=== PATIENT | female | born 1970 | race Caucasian/White ===

== ENCOUNTER 2020-09-24 10:53 | Day surgery (SDC) | payer BC ==
[~2020-09-24] VITALS: Ht 160 cm; Wt 68.3 kg
[2020-09-24] MEDS ORDERED: NS 1,000 ML IV ONE (11:45)
[2020-09-24] MEDS ORDERED: KETOROLAC 30 MG/ML 1ML VIAL IV ONE (11:45)
[2020-09-24] MEDS ORDERED: ONDANSETRON 4MG/2ML VIAL IV ONE (11:45)
--- NOTE | 2020-09-24 11:59 | REP ---
INDICATION: right flank pain/ hx kidney stones COMPARISON: None TECHNIQUE: Axial noncontrast images from the lung bases to the pubic symphysis with coronal and sagittal reformations. This CT examination was performed using the following dose reduction techniques: Automated exposure control, adjustment of mA and/or kv according to the patient's size, and use of iterative reconstruction technique. FINDINGS: Right kidney demonstrates mild hydroureteronephrosis with perinephric stranding secondary to an 8 mm calculus at the ureterovesical junction (series 201; image 115). Nonobstructing right renal calculi measure up to 3 mm and nonobstructing left renal calculi measure up to 8 mm. Liver, spleen, pancreas, gallbladder, and bilateral adrenal glands are normal. The enteric system is without obstruction or acute inflammatory process. Pelvis demonstrates collapsed bladder with right UVJ stone as above and evidence for prior hysterectomy. No ascites. No free air. No adenopathy. Abdominal aorta without aneurysm. Musculoskeletal structures are intact. Lung bases are clear.. IMPRESSION: Acute right-sided obstructive uropathy within 8 mm calculus at the ureterovesical junction. Bilateral nonobstructing intrarenal calculi noted. <Electronically signed by Matteo Ornelas > 09/24/20 [id number]
[2020-09-24 12:09] LABS: BASO % 0.7 % (0.0-1.0); EOS # 0.1 10^3/uL (0.0-0.5); EOS % 1.3 % (0.0-3.0); HEMOGLOBIN 14.5 g/dl (12.0-15.5); LYMPH # 1.3 10^3/uL (1.5-5.0); LYMPH % 21.2 % (24.0-44.0); MEAN CORPUSCULAR HEMOGLOBIN 29.8 pg (27.0-33.0); MEAN CORPUSCULAR HGB CONC 32.2 g/dl (32.0-36.5); MEAN CORPUSCULAR VOLUME 92.6 fl (80.0-96.0); MONO # 0.5 10^3/uL (0.0-0.8); MONO % 7.8 % (0.0-5.0); NEUTROPHILS # 4.1 10^3/uL (1.5-8.5); NEUTROPHILS % 68.3 % (36.0-66.0); PLATELET COUNT, AUTOMATED 206 10^3/uL (150-450); RED BLOOD COUNT 4.86 10^6/uL (4.00-5.40)
[2020-09-24] MEDS ORDERED: ACET1TAB16 PO (13:00)
[2020-09-24] MEDS ORDERED: THERTAB52 PO (13:00)
[2020-09-24 13:47] LABS: RSV AMPLIFICATION NEGATIVE (NEGATIVE)
[2020-09-24] MEDS ORDERED: ceFAZolin SOD 2 GM in IV 1 EA IV ONE (15:45)
--- OUTSIDE RECORDS SUMMARY | 2020-09-24 17:36 | CCD ---
Author Author [facility] Organization [facility] Address Unknown Phone Unavailable Care Team Providers Care Business Process Consultant Name Role Phone Javad Jolly MANUFACTURING WEAVER Unavailable Javad Jolly MANUFACTURING WEAVER Unavailable Javad Jolly MANUFACTURING WEAVER Unavailable Javad Jolly MANUFACTURING WEAVER Unavailable Javad Jolly MANUFACTURING WEAVER Unavailable Javad Jolly MANUFACTURING WEAVER Unavailable Javad Jolly MANUFACTURING WEAVER Unavailable Javad Jolly MANUFACTURING WEAVER Unavailable Richard CAMPOS MD Unavailable Unavailable Richard CAMPOS MD Unavailable Unavailable Richard CAMPOS MD Unavailable Unavailable Richard CAMPOS MD Unavailable Unavailable Richard CAMPOS MD Unavailable Unavailable Richard CAMPOS MD Unavailable Unavailable Richard CAMPOS MD Unavailable Unavailable Richard CAMPOS MD Unavailable Unavailable Richard CAMPOS MD Unavailable Unavailable Richard CAMPOS MD Unavailable Unavailable Richard CAMPOS MD Unavailable Unavailable Richard CAMPOS MD Unavailable Unavailable Richard CAMPOS MD Unavailable Unavailable Richard CAMPOS MD Unavailable Unavailable Richard CAMPOS MD Unavailable Unavailable Richard CAMPOS MD Unavailable Unavailable Richard CAMPOS MD Unavailable Unavailable HAASBEEK, F KATELYNN MD Unavailable Unavailable HAASBEEK, F KATELYNN MD Unavailable Unavailable HAASBEEK, F KATELYNN MD Unavailable Unavailable HAASBEEK, F KATELYNN MD Unavailable Unavailable HAASBEEK, F KATELYNN MD Unavailable Unavailable HAASBEEK, F KATELYNN MD Unavailable Unavailable HAASBEEK, F KATELYNN MD Unavailable Unavailable HAASBEEK, F KATELYNN MD Unavailable Unavailable HAASBEEK, F KATELYNN MD Unavailable Unavailable Bartlett, E Olimpia PA Unavailable [phone] Bartlett, E Olimpia PA Unavailable [phone] Bartlett, E Olimpia PA Unavailable [phone] Bartlett, E Olimpia PA Unavailable [phone] Bartlett, E Olimpia PA Unavailable [phone] Re-disclosure Warning The records that you are about to access may contain information from federally-assisted alcohol or drug abuse programs. If such information is present, then the following federally mandated warning applies: This information has been disclosed to you from records protected by federal confidentiality rules (42 CFR part 2). The federal rules prohibit you from making any further disclosure of this information unless further disclosure is expressly permitted by the written consent of the person to whom it pertains or as otherwise permitted by 42 CFR part 2. A general authorization for the release of medical or other information is NOT sufficient for this purpose. The Federal rules restrict any use of the information to criminally investigate or prosecute any alcohol or drug abuse patient.The records that you are about to access may contain highly sensitive health information, the redisclosure of which is protected by Article 27-F of the [facility] Public Health law. If you continue you may have access to information: Regarding HIV / AIDS; Provided by facilities licensed or operated by the [facility] Office of Mental Health; or Provided by the [facility] Office for People With Developmental Disabilities. If such information is present, then the following [facility] mandated warning applies: This information has been disclosed to you from confidential records which are protected by state law. State law prohibits you from making any further disclosure of this information without the specific written consent of the person to whom it pertains, or as otherwise permitted by law. Any unauthorized further disclosure in violation of state law may result in a fine or prison sentence or both. A general authorization for the release of medical or other information is NOT sufficient authorization for further disc losure. Allergies and Adverse Reactions Type Description Substance Reaction Status Data Source(s ) Drug allergy Drug allergy Sulfa (Sulfonamide Antibiotics) Anaphylactic Shock Other [facility] Encounters Encounter Providers Location Date Indications Data Source(s ) Preadmit Attender: Olimpia SOW CPSCAORT-PRSCAOT 12:00:00 AM EST S/P R VOLAR GANGLION CYST EXCISION [facility] S/P R VOLAR GANGLION CYST EXCISION Outpatient Attender: Olimpia SOW CPSCAORT-CPSCAORT 1 10/03/2019 10:28:00 AM EST - 08/03/2020 10:29:00 AM EST [facility] Patient discharged. Outpatient Attender: KATELYNN CAMPOS MD CPSCAORT-SDCLOC 11:08:00 AM EST - 07/20/2020 02:01:00 PM EST [facility]ST Outpatient Attender: KATELYNN CAMPOS MD CPSCAORT-LABPNP 10:15:00 AM EST PRE-OP [facility] PRE-OP Outpatient Attender: KATELYNN CAMPOS MD ED-LABPNP 07/15/2020 08:00:00 AM EST PREOP [facility] PREOP Outpatient Attender: Olimpia SOW CPSCAORT-CPSCAORT 1 08:45:00 AM EDT - 07/04/2020 08:46:00 AM EDT [facility] Patient discharged. Outpatient Attender: Narda QUISPE CPSCAORT-CPSCAORT 0 10/27/2019 10:31:00 AM EST - 10/27/2019 10:32:00 AM EST [facility] Patient discharged. Medications Medication Brand Name Start Date Product Form Dose Route Admi nistrative Instructions Pharmacy Instructions Status Indications Reaction Description Data Source(s) 300-30 mg 07/20/2020 12:00:00 AM EST tablet 15 TAKE ONE TABLET BY MOUTH EVERY 4 HOURS NEEDED FOR PAIN MAXIMUM DAILY DOSE = 6 TAKE ONE TABLET BY MOUTH EVERY 4 HOURS NEEDED FOR PAIN MAXIMUM DAILY DOSE = 6 SOLD: 07/20/2020 [facility] 875 mg 09/19/2019 12:00:00 AM EST tablet 20 TAKE 1 TABLET BY MOUTH TWICE DAILY TAKE 1 TABLET BY MOUTH TWICE DAILY SOLD: 09/19/2019 [facility] Insurance Providers Payer name Policy type / Coverage type Policy ID Covered alliance party ID Covered alliance party's relationship to sparks Policy [place] Plan Information BC CAP[employer]UE CROSS 361 [id number] SP [id number] BC [employer]OSS 361 [id number] [id number] 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 [id number] 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 EXC [id number] 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 [id number] [place] [id number] Full deanna e employed [id number] [employer] [place] [id number] SPOUSE [id number] EXCELLUS BLUE CROSS [id number] HU [id number] EXCELLUS BLUE CROSS [id number] HU [id number] EXCELLUS BLUE CROSS [id number] HU [id number] EXCELLUS BLUE CROSS [id number] HU [id number] BLUE CROSS -O/P [id number] 01 [id number] BLUE CROSS - CLINIC [id number] 01 [id number] BLUE CROSS -O/P [id number] 01 [id number] BCBS HMO [place] O [id number] U [id number] Problems, Conditions, and Diagnoses Code Display Name Description Problem Type Effective Dates Data Source(s) M67.431 Ganglion, right wrist GANGLION, RIGHT WRIST Diagnosis 07/20/2020 11:08:00 AM [facility] Surgeries/Procedures Procedure Description Date Indications Data Source(s) EXCISION GANGLION WRIST DORSAL/VOLAR RECURRENT 020 12:00:00 AM [facility] LEVEL III SURG PATHOLOGY GROSS&MICROSCOPIC EXAM TISSUE EXAM BY PATHOLOGIST 07/20/2020 12:00:00 AM [facility] Injection, propofol, 10 mg 07/20/2020 12:00:00 AM [facility] Injection, fentanyl citrate, 0.1 mg 07/20/2020 12:00:0 0 AM [facility] Excision of Right Lower Arm and Wrist Tendon, Open [place] EXCISION OF RIGHT LOWER ARM AND WRIST TENDON, OPEN APPROACH 07/20/2020 12:00:00 AM [facility] outpatient clinic visit for assessment and ma kerri of a patient Hospital Outpatient Clinic Visit 07/04/2020 12:00:[address] [facility] RADEX WRIST COMPLETE MINIMUM 3 VIEWS X-RAY EXAM OF WRIST 12:00:00 AM [facility] Results ID Date Data Source [id number] 08/30/2020 04:06:00 PM [facility] Name Value Range Interpretation Code Description Data Blanca rce(s) Supporting Document(s) ID Date Data Source [id number] 07/24/2020 02:59:00 PM [facility] COVID-19 Patient Ethnicity Not or LatinoCOVID-19 Patient Race WhiteCOVID-19 Specimen Source Nasopharyngeal Name Value Range Interpretation Code Description Data Blanca rce(s) Supporting Document(s) SARS-CoV-2 Specimen Source Normal (applies to n on-numeric results) [facility] SARS-CoV-2 RNA Normal (applies to non-numeric r esults) [facility] Patient Race Normal (applies to non-numeric result s) [facility] Not or LatinoSee scanned report ID Date Data Source [id number] 10/27/2019 01:40:00 PM [facility] Name: RASHEEDA KILGORE : 1970 Age/S ex: 49F Ordering Provider: JOSE ENRIQUE Olvera Med Rec #: [id number] Reg Status: REG POV Room #: Date of Service: 10/27/19 Report Number: [id number] cc:JOSE ENRIQUE Olvera Send Report To: [id number] XRP/XR Wrist Rt Min. 3 Views Reason for exam: GANGLION CYST FINDINGS: Normal alignment and position of the bones. No signs of any osseous lesions identified. No other significant findings. IMPRESSION: No abnormalities identified. Fluoroscopy time in seconds: Number of Exposures: Time Portable Image Performed: Contrast Agent in ml: Method of Administration: REPORT SIGNATURE ON FILE Reported By: Florian Gonzalez MD <Electronically signed by Nathaniel Gonzalez MD> 10/27/19 1515 Dictation Date/Time: 10/27/19 1120 Transcribed Date/Time: 10/27/19 1340 Production Supv: RAI Name Value Range Interpretation Code Description Data Blanca rce(s) Supporting Document(s) Procedure Vital Signs ID Date Data Source [id number] 08/31/2020 07:27:00 AM EST [facility] Name Value Range Interpretation Code Description Data Source(s) Weight Measurement Method [address] [facility] Weight [address] [facility] Temperature 97.3 97.3 [facility] Respiratory Effort [address] [facility] Respiratory Rate 16 16 [facility] Pulse Rate [address] [facility] Height [address] [facility] Blood Pressure 114/76 114/76 [facility]
[2020-09-24] MEDS ORDERED: ONDANSETRON 4MG/2ML VIAL As Ordered ONE (17:44)
[2020-09-24] MEDS ORDERED: LIDOCAINE 2% 100MG/5ML SDV (FOR ANES.) As Ordered ONE (17:44)
[2020-09-24] MEDS ORDERED: dexameTHASONE 4 MG/ML 1ML VIAL (J1100 PER 1MG) As Ordered ONE (17:44)
[2020-09-24] MEDS ORDERED: MIDAZOLAM INJ 2MG/2ML VIAL (J2250 PER 1MG) As Ordered ONE (17:44)
[2020-09-24] MEDS ORDERED: fentaNYL 250 MCG/5 ML INJECTION (J3010) As Ordered ONE (17:44)
[2020-09-24] MEDS ORDERED: propofoL 200 MG/20 ML VIAL As Ordered ONE (17:44)
[2020-09-24] MEDS ORDERED: CONRAY-60 60% 50ML VIAL (Q9961) As Ordered ONE (17:49)
[2020-09-24] MEDS ORDERED: ePHEDrine SULFATE 25 MG/5 ML(5MG/ML) SYRINGE As Ordered ONE (18:17)
--- NOTE | 2020-09-24 18:32 | REP ---
INDICATION: PYELOGRAM. COMPARISON: None. TECHNIQUE: Two fluoroscopic images from pyelogram study. FINDINGS: Two images demonstrate moderate hydronephrosis with ureteral stent placement. Total fluoroscopic time 23 seconds IMPRESSION: Status post right ureteral stent placement. <Electronically signed by Matteo Ornelas > 09/24/20 0404
--- NOTE | 2020-09-24 18:33 | SMCUROLCON ---
Urology Consultation General Date of Consultation 09/24/20 Reason For Consultation This patient is seen for Low Back Pain. History of Present Illness The patient is a 50-year-old female with a past medical history for renal calculi all of which have been on the right side. She presents to the emergency room today with a one-week history of low-grade back pain which has become excessive. In the emergency room she was evaluated and a CT scan was performed showing an 8 mm calculus in the distal right ureter. She has had several episodes of stones in the past none of which she has been able to pass on around. Because of her discomfort level and history of stones, urology consult was called. Past Medical History Surgical Hstory Numerous episodes of renal calculi involving the right kidney. Family History Significant Family History: Noncontributory Social History Alcohol: rarely Drugs: denies Medications Current Medications Current Medications Medications (Trade) Dose Ordered Sig/Marga Route PRN Reason Start Time Stop Time Status Last Admin Dose Admin Home Med (Med Rec Complete!) ASDIRECTED XX 09/24/20 13:15 09/24/20 13:03 [place] Allergies Allergies: Coded Allergies: Sulfa (Sulfonamide Antibiotics) (Verified Allergy, Severe, anaphylaxis, 09/24/20) Review of Systems General: Reports: Normal Appetite; Denies: Fatigue, Malaise Constitutional: Denies: Fever, Chills, Sweats, Weakness, Malaise Eyes: Denies: Pain, Vision change ENT: Denies: Head Aches, Sore Throat, Epistaxis Skin: Denies: Rash, Lesions, Breakdown, Nail Changes Pulmonary: Denies: Dyspnea, Cough Cardiovascular: Denies Chest Pain, Denies Palpitations Gastrointestinal: Denies: Nausea, Vomiting, Abdominal Pain Genitourinary: Denies: Dysuria, Frequency, Incontinence, Hematuria Hematologic: Denies: Bruising, Bleeding Excessively Endocrine: Denies: Polydipsia, Polyphagia, Polyuria Musculoskeletal: Denies: Neck Pain, Back Pain, Shoulder Pain, Arm Pain, Hand Pain, Leg Pain, Foot Pain, Joint Pain, Muscle Pain, Spasms, Other Symptoms Neurological: Denies: Weakness, Numbness, Incoordination, Change in Speech Psych: Reports: Mood Normal; Denies: Anxiety, Depression Physical Examination General Exam: Moderate Distress EYE EXAM: PERRLA, Conjunctiva & lids normal, EOMI; No: Sclera icteric ENT EXAM: Atraumatic, Mucous membr. moist/pink, Pharynx Normal Neck Exam: Supple; No: JVD, thyromegaly Abdomen Exam: Normal Bowel Sounds, Soft; No: Tenderness, Hepatospenomegaly Extremity Exam: Normal Pulses; No: Clubbing, Cyanosis, Edema Vital Signs/I&O Vital Signs Date Time Temp Pulse Resp B/P (MAP) Pulse Ox O2 Delivery O2 Flow Rate FiO2 09/24/20 15:06 98.5 88 16 128/78 (95) 98 Room Air Laboratory Data 24H Labs Laboratory Tests 2 09/24/20 11:36: Urine Color STRAW, Urine Appearance CLEAR, Urine pH 7.0, Urine Specific [place] 1.004, Urine Protein NEGATIVE, Urine Glucose (UA) NEGATIVE, Urine Ketones NEGATIVE, Urine Blood NEGATIVE, Urine Nitrite NEGATIVE, Urine Bilirubin NEGATIVE, Urine Urobilinogen 0.2, Urine Leukocyte Esterase NEGATIVE, Urine WBC (Auto) 1, Urine RBC (Auto) 0, Urine Hyaline Casts (Auto) 0, Urine Bacteria (Auto) NEGATIVE, Urine Squamous Epithelial Cells 0, Urine Sperm (Auto) 09/24/20 11:58: POC Glucose (Misc Panel) 92, POC Sodium (Misc Panel) 140, POC Potassium (Misc Panel) 4.0, POC Chloride (Misc Panel) 102, POC Total CO2 (Misc Panel) 29.0H, POC Blood Urea Nitrogen (Misc Panel 12, POC Ionized Calcium (Misc Panel) 4.9, POC Creatinine (Misc Panel) 0.8, POC Hematocrit (Misc Panel) 45.0 09/24/20 12:01: Immature Granulocyte % (Auto) 0.7, Neutrophils (%) (Auto) 68.3H, Lymphocytes (%) (Auto) 21.2L, Monocytes (%) (Auto) 7.8H, Eosinophils (%) (Auto) 1.3, Basophils (%) (Auto) 0.7, Neutrophils # (Auto) 4.1, Lymphocytes # (Auto) 1.3L, Monocytes # (Auto) 0.5, Eosinophils # (Auto) 0.1, Basophils # (Auto) 0.0, Nucleated Red Blood Cells % (auto) 0.0 09/24/20 13:02: Coronavirus (COVID-19)(PCR) NEGATIVE, Influenza Type A (RT-PCR) NEGATIVE, Influenza Type B (RT-PCR) NEGATIVE, Respiratory Syncytial Virus (PCR) NEGATIVE CBC/BMP Laboratory Tests 09/24/20 12:01 Assessment Obstructing distal right ureteral calculus Plan Because of the patient's pain level and persistent symptoms for 1 week, I recommended a stent insertion which can be followed in a few weeks by u reteroscopic laser lithotripsy for the stone. Alternative procedures, advantages and disadvantages of stent insertion and possible complications were discussed including infection, pain, bleeding, pe rforation, and strictures. The patient has agreed to the stent insertion and consents were signed. Time Spent on Consult: Time Spent / Consult (Minutes): 50 ROMERO NAVARRETE MD Sep 24, 2020 15:51
--- NOTE | 2020-09-24 18:37 | ROOPDOC ---
[facility] Report Of Operation Report of Operation DATE OF PROCEDURE: 09/24/20 PREPROCEDURE DIAGNOSES: Right ureteral calculus POSTPROCEDURE DIAGNOSES: Right Ureteral Calculus PROCEDURE: Cystoscopy, right retrograde pyelogram, stent insertion and x-ray interpretation SURGEON: Earle Bragg MD OIL TREATER: None ANESTHESIA: Mac ESTIMATED BLOOD LOSS: Approximately less than 5 mL. COMPLICATIONS: None REMARKS: None PROCEDURE NOTE: The patient was brought to the operating room for stent insertion because of a distal right ureteral calculus that she states was starting to cause her pain 6 months ago. DESCRIPTION OF PROCEDURE: The patient was placed on table in the supine position, given Mac anesthesia, placed in the lithotomy position, prepped with Betadine paint and draped in an aseptic manner. Timeout was then performed. A 22 Mongolian cystoscope was then inserted into the meatus and advanced under direct vision of a 30 lens to the bladder. The bladder appeared to be normal ex cept for the area near the right ureteral orifice that appeared to be more edematous than the left side. A 5 Mongolian open-ended catheter was then inserted into the orifice and retrograde injection of contrast showed the patient had a stone in the distal ureter with proximal hydronephrosis. Aware guide was then passed around the stone and the catheter was removed. A 5 Mongolian double-J stent was then passed over the wire and curled well in the renal pelvis and in the bladder when the wire was removed. The bladder was then drained, cystoscope was removed and the patient was awakened and sent to recovery room stable condition having tolerated procedure well. Fluoroscopy was used throughout the case to evaluate stone position, obstruction and to place the ureteral stent. The patient will be seen back in the office in about 2 weeks and schedule for ureteroscopic laser lithotripsy. EARLE BRAGG MD Sep 24, 2020 18:37
[2020-09-24] MEDS ORDERED: oxyCODONE 5MG TAB As Ordered ONE (18:38)
[2020-09-24] MEDS ORDERED: LR 1,000 ML IV SCH ×2 (18:45)
[2020-09-24] MEDS ORDERED: IBUPROFEN 600MG TAB PO PRN (18:45)
[2020-09-24] MEDS ORDERED: oxyCODONE 5MG TAB PO PRN (18:45)
[2020-09-24] MEDS ORDERED: ONDANSETRON 4MG/2ML VIAL IV PRN (18:45)
[2020-09-24] MEDS ORDERED: fentaNYL 100 MCG/2 ML INJECTION (J3010) IV PRN (18:45)
[2020-09-24 19:30] VITALS: BP 143/79
== END 2020-09-24 19:30 | disposition home or self-care (01) ==
LOC: M ED 10:53 → EDSEX 10:53 → M SDC 10:53 → M ED 17:33
PROVIDERS: ATTEND Urology
DX: N20.1 Calculus of ureter (principal); Z88.2 Allergy status to sulfonamides
CPT/HCPCS: 36415; 52332; 74176; 76000; 80047; 81001; 85025; 87631; 96361; 96374; 96375; 99284; C1769; C2617; J0690; J1100; J1885; J2250; J2405; J3010; Q9961

== ENCOUNTER → 2020-10-31 | Outpatient (CLI) | payer BC ==
[~2020-10-31] MED LIST: ACET1TAB16 PO; THERTAB52 PO
--- NOTE | 2020-11-01 15:51 | ECGEPIP ---
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
== END ==
LOC: M EKG 11:44
PROVIDERS: ATTEND Urology
DX: N20.0 Calculus of kidney (principal)

== ENCOUNTER → 2020-10-31 | Outpatient (CLI) | payer BC ==
[2020-10-31 13:27] LABS: HEMOGLOBIN 13.6 g/dl (12.0-15.5); MEAN CORPUSCULAR HEMOGLOBIN 30.2 pg (27.0-33.0); MEAN CORPUSCULAR HGB CONC 33.2 g/dl (32.0-36.5); MEAN CORPUSCULAR VOLUME 91.1 fl (80.0-96.0); PLATELET COUNT, AUTOMATED 195 10^3/uL (150-450); WHITE BLOOD COUNT 5.9 10^3/uL (4.0-10.0)
[2020-10-31 13:55] LABS: BLOOD UREA NITROGEN 15 MG/DL (7-18); CALCIUM LEVEL 9.4 MG/DL (8.5-10.1); CARBON DIOXIDE LEVEL 26 MEQ/L (21-32); CHLORIDE LEVEL 107 MEQ/L (98-107); CREATININE FOR GFR 0.84 MG/DL (0.55-1.30); GLOMERULAR FILTRATION RATE > 60.0 (>51); GLUCOSE, FASTING 90 MG/DL (70-100); POTASSIUM SERUM 4.2 MEQ/L (3.5-5.1); SODIUM LEVEL 141 MEQ/L (136-145)
--- NOTE | 2020-11-01 04:03 | REPPI ---
INDICATION: N20.0 RENAL CALCULUS COMPARISON: None TECHNIQUE: PA and lateral. FINDINGS: The mediastinum and cardiac silhouette are normal. The lung pereira are clear and without acute consolidation, effusion, or pneumothorax. The skeletal structures are intact and normal. IMPRESSION: No acute cardiopulmonary process. <Electronically signed by Matteo Ornelas > 11/01/20 0353
--- NOTE | 2020-11-01 04:08 | REPPI ---
INDICATION: N20.0 RENAL CALCULUS COMPARISON: None. TECHNIQUE: Supine view of the abdomen and pelvis. FINDINGS: Right ureteral stent in satisfactory position. No obvious urinary tract calcifications are identified although evaluation is significantly limited due to moderate fecal stasis and bowel gas pattern. No bowel obstruction. Moderate fecal stasis suggested. Calcifications in the pelvis most compatible with phleboliths. Skeletal structures intact. IMPRESSION: Right ureteral stent in satisfactory position. Limited evaluation for urinary tract calcifications. <Electronically signed by Matteo Ornelas > 11/01/20 [id number]
== END ==
LOC: M PLAIMG 11:04
PROVIDERS: ATTEND Urology
DX: N20.0 Calculus of kidney (principal)